=== PATIENT | female | born 1965 | race Caucasian/White ===

== ENCOUNTER 2023-09-21 11:55 | Outpatient (CLI) | payer BC | END 2023-09-21 11:56 | disposition home or self-care (01) | LOC: LABBT 11:55 | PROVIDERS: ATTEND Thoracic Surgery (Cardiothoracic Vascular Surgery) | DX: Z01.818 Encounter for other preprocedural examination (principal); I25.10 Atherosclerotic heart disease of native coronary artery without angina pectoris | CPT/HCPCS: 71046; 93005; 93010 ==

== ENCOUNTER 2023-09-22 06:14 | Inpatient (IN) | payer BC ==
[2023-09-21 14:14] LABS: Hematocrit 37.5 % (34.9-44.5); Hemoglobin 13.3 g/dL (12.0-15.5); Mean Corpuscular HGB CONC 35.5 g/dL (32.0-36.0); Mean Corpuscular Hemoglobin 30.2 pg (27.0-33.0); Mean Corpuscular Volume 85.2 fl (81.6-98.3); Mean Platelet Volume 12.1 fl (7.4-10.4); Platelet Count 265 10x3/uL (150-450); RBC Distribution Width 14.2 % (11.5-14.5)
[2023-09-21 14:21] LABS: Anion Gap 15 mmol/L (10-20); BUN (Urea Nitrogen) 17 mg/dL (9.8-20.1); Calc. Creatinine Clearance 0 mL/min (70-130); Calcium 9.1 mg/dL (7.8-10.44); Carbon Dioxide 26 mmol/L (22-29); Chloride 102 mmol/L (98-107); Estimated GFR 83; Glucose 284 mg/dL (70-105); Potassium 4.4 mmol/L (3.5-5.1); Sodium 139 mmol/L (136-145)
[2023-09-22] MEDS ORDERED: Fentanyl 250 MCG/5 ML VIAL ONE ×2 (06:16→08:08)
[2023-09-22] MEDS ORDERED: Midazolam HCl 2 mg/2 ml Vial ONE ×4 (06:17→10:46)
[2023-09-22] MEDS ORDERED: Bupivacaine PF 0.5% 30 ML VIAL ONE (06:36)
[2023-09-22] MEDS ORDERED: PHENYLEPHRINE-NS 100 MCG/ML 10 ML SYRINGE ONE ×3 (06:36→11:18)
[2023-09-22] MEDS ORDERED: Dexamethasone 4 mg/ml Vial ONE (06:36)
[2023-09-22] MEDS ORDERED: Albumin 5% 500 ML ONE (06:36)
[2023-09-22] MEDS ORDERED: EPINEPHrine 1 MG/ML VIAL ONE (06:36)
[2023-09-22] MEDS ORDERED: Heparin 10,000 UNITS/1 ML VIAL 30,000 UNITS in Sodium Chloride 0.9% 1,000 ML FS SCH (06:45)
[2023-09-22] MEDS ORDERED: CEFAZOLIN 2 GM VIAL ONE (06:47)
[2023-09-22] MEDS ORDERED: Lidocaine 1% MPF 2 ML VIAL ONE (06:47)
[2023-09-22] MEDS ORDERED: Protamine Sulfate 250 MG/25 ML VIAL ONE (07:42)
[2023-09-22] MEDS ORDERED: Magnesium 5 GM/10 ML VIAL ONE (07:42)
[2023-09-22] MEDS ORDERED: Mannitol 12.5 GM/50 ML ONE (07:42)
[2023-09-22] MEDS ORDERED: Vancomycin 1 GM VIAL ONE (07:42)
[2023-09-22] MEDS ORDERED: Cardioplegic Soln 1,000 ML BAG ONE (07:42)
[2023-09-22] MEDS ORDERED: Potassium Chloride 60 mEq (30 mL) VIAL ONE (07:42)
[2023-09-22] MEDS ORDERED: Lidocaine 2% PF 100 mg/5 ml Syringe ONE (07:42)
[2023-09-22] MEDS ORDERED: Heparin 5,000 UNITS/ML VIAL ONE (07:42)
[2023-09-22] MEDS ORDERED: DOPamine 400 MG/10 ML VIAL ONE (07:42)
[2023-09-22] MEDS ORDERED: Albumin 25% 25 GM (100 mL) BOT ONE (07:42)
[2023-09-22] MEDS ORDERED: Papaverine 60 MG/2 ML VIAL ONE (07:42)
[2023-09-22] MEDS ORDERED: Sodium Bicarb 50 mEq/50 ML VIAL ONE (07:42)
[2023-09-22] MEDS ORDERED: Heparin 30,000 units/30 ml VIAL ONE (07:42)
[2023-09-22] MEDS ORDERED: Calcium Chloride 1 GM/10 ML Abboject SYRINGE ONE (07:42)
[2023-09-22] MEDS ORDERED: Thrombin 5000 UNITS/5 ML VIAL ONE (07:42)
[2023-09-22] MEDS ORDERED: Aminocaproic Acid 5 GM/20 ML VIAL ONE (07:42)
[2023-09-22] MEDS ORDERED: Vecuronium 10 MG VIAL ONE ×2 (08:11→08:25)
[2023-09-22] MEDS ORDERED: Milrinone 10 MG/10 ML VIAL ONE (08:22)
[2023-09-22] MEDS ORDERED: Etomidate 40 MG (20 mL) VIAL ONE (08:25)
[2023-09-22] MEDS ORDERED: Rocuronium Bromide 10 MG/ML (10ML VIAL) ONE (08:54)
[2023-09-22] MEDS ORDERED: Esmolol 100 MG/10 ML VIAL ONE (09:16)
[2023-09-22] MEDS ORDERED: Insulin Regular 300 UNITS/3 ML VIAL ONE (09:24)
[2023-09-22] MEDS ORDERED: Lidocaine 1% PF 5 ML VIAL ONE (09:51)
[2023-09-22] MEDS ORDERED: Sterile Water 20 ML ONE (10:47)
[2023-09-22] MEDS ORDERED: Bisacodyl 5 MG TAB PO PRN (11:03)
[2023-09-22] MEDS ORDERED: Bisacodyl 10 MG SUPP PR PRN (11:03)
[2023-09-22] MEDS ORDERED: Albumin 5% 12.5 GM (250 mL) BOT IVPB PRN (11:03)
[2023-09-22] MEDS ORDERED: Hetastarch 6% 500 ML 500 ML IVPB PRN (11:03)
[2023-09-22] MEDS ORDERED: Nitroglycerin 50 MG/250 ML BOT 250 ML IVPB PRN (11:03)
[2023-09-22] MEDS ORDERED: Morphine 2 MG/ML VIAL SLOW IVP PRN (11:03)
[2023-09-22] MEDS ORDERED: Ipratropium/Albuterol 3 ML NEB NEB PRN (11:03)
[2023-09-22] MEDS ORDERED: DOPamine 400 MG/D5W 250 ML 250 ML IVPB PRN (11:03)
[2023-09-22] MEDS ORDERED: Mag-Al 1200 mg/1200 mg/30 ML UDCUP PO PRN (11:03)
[2023-09-22] MEDS ORDERED: Post-Op Insulin Drip Protocol IVPB ONE (11:03)
[2023-09-22] MEDS ORDERED: Guaifenesin DM 100-10/5 ML UDCUP PO PRN (11:03)
[2023-09-22] MEDS ORDERED: hydrALAZINE 20 MG/ML VIAL SLOW IVP PRN (11:03)
[2023-09-22] MEDS ORDERED: NOREPINEPHRINE 8 MG/250 ML-D5W 250 ML IVPB PRN (11:03)
[2023-09-22] MEDS ORDERED: Insulin Regular 300 UNITS/3 ML VIAL SC PRN (11:30)
[2023-09-22] MEDS ORDERED: Dextrose 50% Abboject 50 ML SYRINGE SLOW IVP PRN (11:30)
[2023-09-22] MEDS ORDERED: Glucagon 1 MG/ML KIT SC PRN (11:30)
[2023-09-22] MEDS ORDERED: Dextrose 5% in Water 1,000 ML IV PRN (11:30)
[2023-09-22 11:34] LABS: Actual Bicarbonate (HCO3a) 20.9 mEq/L (22-28); Base Excess (BEa) -4.7 mEq/L (-2.0 to +3.0); CO2 Tension 40.7 mmHg (35.0-45.0); Calcium, Ionized (arterial) 1.17 mmol/L (1.12-1.30); Carboxyhemoglobin (COHb) 0.3 gm% (0.0-3.0); Hematocrit-ABG 31 % (36.0-47.0); Hemoglobin (Hb) 10.4 g/dL (12.0-16.0); O2 Tension (PaO2), arterial 234.8 mmHg (80.0-100.0); pH, Arterial 7.329 (7.35-7.45)
[2023-09-22 11:35] LABS: ALV-art Gradient 142.125 mmHg (0-20); Puncture Site Arterial Line
[2023-09-22 11:38] LABS: #Basophils 0.1 thou/uL (0.0-0.2); #Eosinphils 0.1 thou/uL (0.0-0.7); #Monocytes 0.7 thou/uL (0.11-0.59); #Neutrophils 14.3 thou/uL (1.40-6.50); %Basophils 0.4 % (0.0-1.0); %Eosinophils 0.8 % (0.0-10.0); %Lymphocytes 15.5 % (21.0-51.0); %Monocytes 3.8 % (0.0-10.0); %Neutrophils 78.2 % (42.0-75.0); Hematocrit 28.4 % (36.0-47.0); Hemoglobin 9.6 g/dL (12.0-16.0); Mean Corpuscular HGB CONC 33.8 g/dL (32.0-36.0); Mean Corpuscular Hemoglobin 29.8 pg (27.0-31.0); Mean Corpuscular Volume 88.2 fl (78.0-98.0); Mean Platelet Volume 10.9 fL (7.4-10.4); Platelet Count 195 10x3/uL (130-400); Red Blood Cell (RBC) Count 3.22 mill/uL (4.20-5.40); White Blood Cell (WBC) Count 18.3 10x3/uL (4.8-10.8)
[2023-09-22 11:51] LABS: Anion Gap 8 mmol/L (10-20); BUN (Urea Nitrogen) 15 mg/dL (9.8-20.1); Calc. Creatinine Clearance 147 mL/min (70-130); Calcium 8.4 mg/dL (7.8-10.44); Carbon Dioxide 24 mmol/L (22-29); Chloride 109 mmol/L (98-107); Estimated GFR 103; Glucose 230 mg/dL (70-105); Potassium 3.3 mmol/L (3.5-5.1); Sodium 138 mmol/L (136-145)
[2023-09-22 11:52] LABS: INR-International Normal Ratio 1.2; PTT 29.3 sec (22.9-36.1); Prothrombin Time 15.6 sec (12.0-14.7)
[2023-09-22] MEDS: D5 1/2 NS w/20 mEq KCL 1,000 ML IV SCH (12:12)
[2023-09-22] MEDS: Magnesium 2 GM/50 ML(in water) 2 GM in Premix 1 BAG IVPB SCH (12:13)
[2023-09-22] MEDS: Ketorolac Tromethamine 30 MG (1 mL) VIAL IVP SCH (12:13)
[2023-09-22] MEDS: Ondansetron PF 4 MG/2 ML Vial IVP PRN (12:13)
[2023-09-22] MEDS: Potassium Chloride 20 MEQ (100 mL) BAG IVPB PRN (12:13)
[2023-09-22] MEDS: HUMULIN R 100 UNITS in Sodium Chloride 0.9% 100 ML IVPB SCH (12:14)
[2023-09-22 12:21] VITALS: BMI 34.8
[2023-09-22] MEDS: CEFAZOLIN 2 GM in Sodium Chloride 0.9% 100 ML IVPB SCH (14:08)
[2023-09-22 15:02] LABS: Actual Bicarbonate (HCO3a) 21.3 mEq/L (22-28); Base Excess (BEa) -0.7 mEq/L (-2.0 to +3.0); CO2 Tension 26.7 mmHg (35.0-45.0); Calcium, Ionized (arterial) 1.13 mmol/L (1.12-1.30); Hematocrit-ABG 31 % (36.0-47.0); Hemoglobin (Hb) 10.7 g/dL (12.0-16.0); O2 Tension (PaO2), arterial 162.1 mmHg (80.0-100.0); Potassium - ABG Lab 3.87 mmol/L (3.70-5.30); pH, Arterial 7.519 (7.35-7.45)
[2023-09-22 15:03] LABS: ALV-art Gradient 89.725 mmHg (0-20); Puncture Site Arterial Line
[2023-09-22] MEDS: fentaNYL 50 mcg/mL 1 mL Vial SLOW IVP PRN (15:47)
[2023-09-22 16:52] LABS: Hemoglobin 10.2 g/dL (12.0-16.0)
[2023-09-22 17:18] LABS: Potassium 3.8 mmol/L (3.5-5.1)
[2023-09-22] MEDS: Famotidine/PF 20 mg/2ml Vial SLOW IVP SCH (20:29)
[2023-09-22] MEDS: Rosuvastatin 20 MG TAB PO SCH (20:29)
[2023-09-22] MEDS: traMADol HCl 50 MG TAB PO PRN (21:31)
[2023-09-23] MEDS: Albumin 5% 12.5 GM (250 mL) BOT IVPB PRN (01:13)
[2023-09-23 01:53] LABS: Potassium 4.5 mmol/L (3.5-5.1)
[2023-09-23] MEDS: fentaNYL 50 mcg/mL 1 mL Vial SLOW IVP PRN (03:47)
[2023-09-23 05:05] LABS: #Monocytes 1.3 thou/uL (0.11-0.59); #Neutrophils 11.9 thou/uL (1.40-6.50); %Basophils 0.1 % (0.0-1.0); %Monocytes 8.8 % (0.0-10.0); %Neutrophils 80.5 % (42.0-75.0); Hematocrit 26.3 % (36.0-47.0); Hemoglobin 8.9 g/dL (12.0-16.0); Mean Corpuscular HGB CONC 33.8 g/dL (32.0-36.0); Mean Corpuscular Hemoglobin 29.9 pg (27.0-31.0); Mean Corpuscular Volume 88.3 fl (78.0-98.0); Mean Platelet Volume 12.1 fL (7.4-10.4); Platelet Count 158 10x3/uL (130-400); RBC Distribution Width 14.8 % (11.5-14.5); Red Blood Cell (RBC) Count 2.98 mill/uL (4.20-5.40); White Blood Cell (WBC) Count 14.8 10x3/uL (4.8-10.8)
[2023-09-23 05:30] LABS: Anion Gap 13 mmol/L (10-20); BUN (Urea Nitrogen) 17 mg/dL (9.8-20.1); Calc. Creatinine Clearance 165 mL/min (70-130); Calcium 8.3 mg/dL (7.8-10.44); Carbon Dioxide 19 mmol/L (22-29); Chloride 108 mmol/L (98-107); Estimated GFR 103; Glucose 117 mg/dL (70-105); Potassium 4.6 mmol/L (3.5-5.1); Sodium 135 mmol/L (136-145)
[2023-09-23] MEDS: Magnesium 2 GM/50 ML(in water) 2 GM in Premix 1 BAG IVPB SCH (07:38)
[2023-09-23] MEDS: Aspirin 325 MG TAB PO SCH (07:39)
[2023-09-23] MEDS: Potassium Chloride 10 MEQ TAB PO SCH (07:40)
[2023-09-23] MEDS: Furosemide 40 MG TAB PO SCH (07:40)
[2023-09-23] MEDS ORDERED: Insulin Glargine 30 UNITS/0.3 ML VIAL SC PRN (11:18)
[2023-09-23] MEDS ORDERED: Guaifenesin DM 100-10/5 ML UDCUP PO PRN (15:59)
[2023-09-23] MEDS ORDERED: Bisacodyl 5 MG TAB PO PRN (15:59)
[2023-09-23] MEDS ORDERED: Artificial Tear Sol 15 ML BOT EA EYE PRN (15:59)
[2023-09-23] MEDS ORDERED: Mag-Al 1200 mg/1200 mg/30 ML UDCUP PO PRN (15:59)
[2023-09-23] MEDS ORDERED: Milk Of Magnesia 30 ML UDCUP PO PRN (15:59)
[2023-09-23] MEDS ORDERED: Mineral Oil ENEMA PR PRN (15:59)
[2023-09-23] MEDS ORDERED: diphenhydrAMINE 25 MG CAP PO PRN (15:59)
[2023-09-23] MEDS ORDERED: Bisacodyl 10 MG SUPP PR PRN (15:59)
[2023-09-23] MEDS ORDERED: Zolpidem Tartrate 5 MG TAB PO PRN (15:59)
[2023-09-23] MEDS ORDERED: Nitroglycerin 0.4 MG TAB (25 Tab Bottle) SL PRN (15:59)
[2023-09-24] MEDS: Acetaminophen 325 MG TAB PO PRN (00:29)
[2023-09-24] MEDS ORDERED: Dextrose 50% Abboject 50 ML SYRINGE IVP PRN (01:00)
[2023-09-24] MEDS ORDERED: Glucagon 1 MG/ML KIT IM PRN (01:00)
[2023-09-24] MEDS ORDERED: Dextrose 5% in Water 1,000 ML IV PRN (01:00)
[2023-09-24] MEDS: Insulin Regular 300 UNITS/3 ML VIAL SC PRN (01:21)
[2023-09-24] MEDS: Aspirin 325 mg Enteric Coated Tablet PO SCH (09:22)
[2023-09-24] MEDS: traMADol HCl 50 MG TAB PO PRN (15:28)
[2023-09-25] MEDS: Amiodarone 150 MG, Admixture Fee 1 EACH in Dextrose 5% in Water 100 ML IVPB SCH (09:59)
[2023-09-25] MEDS: Amiodarone 450 MG, Admixture Fee 1 EACH in Dextrose 5% in Water 250 ML IVPB SCH (10:04)
[2023-09-25] MEDS: Furosemide 40 MG TAB PO SCH (14:13)
[2023-09-25] MEDS: Potassium Chloride 10 MEQ TAB PO SCH (16:23)
[2023-09-25] MEDS: Amiodarone 200 MG TAB PO SCH (20:04)
[2023-09-26] MEDS: Carvedilol 6.25 MG TAB PO SCH (09:03)
[2023-09-26] MEDS ORDERED: Amiodarone 450 MG in Dextrose 5% in Water 250 ML IVPB SCH (10:15)
[2023-09-26] MEDS: Amiodarone 450 MG, Admixture Fee 1 EACH in Dextrose 5% in Water 250 ML IVPB SCH (10:19)
[2023-09-26] MEDS: Amiodarone 450 MG in Dextrose 5% in Water 250 ML IVPB SCH (18:02)
[2023-09-27] MEDS: Amiodarone 200 MG TAB PO SCH (08:32)
[2023-09-27 09:45] LABS: #Eosinphils 0.1 thou/uL (0.0-0.7); #Monocytes 0.8 thou/uL (0.11-0.59); #Neutrophils 7.2 thou/uL (1.40-6.50); %Basophils 0.3 % (0.0-1.0); %Eosinophils 0.5 % (0.0-10.0); %Lymphocytes 20.5 % (21.0-51.0); %Monocytes 7.5 % (0.0-10.0); %Neutrophils 69.8 % (42.0-75.0); Hematocrit 25.8 % (36.0-47.0); Hemoglobin 8.7 g/dL (12.0-16.0); Mean Corpuscular HGB CONC 33.7 g/dL (32.0-36.0); Mean Corpuscular Hemoglobin 29.9 pg (27.0-31.0); Mean Corpuscular Volume 88.7 fl (78.0-98.0); Mean Platelet Volume 11.1 fL (7.4-10.4); Platelet Count 272 10x3/uL (130-400); RBC Distribution Width 14.9 % (11.5-14.5); Red Blood Cell (RBC) Count 2.91 mill/uL (4.20-5.40); White Blood Cell (WBC) Count 10.4 10x3/uL (4.8-10.8)
[2023-09-28 11:20] VITALS: TEMP 97.5
[2023-09-28 12:05] VITALS: BP 129/62
== END 2023-09-28 14:50 | disposition home or self-care (01) | DRG 236 ==
LOC: SDC 06:14 → CCU 08:44 → 2NO 09-23 19:20
PROVIDERS: ADMIT Thoracic Surgery (Cardiothoracic Vascular Surgery); ATTEND Thoracic Surgery (Cardiothoracic Vascular Surgery)
PROC: 02100Z9 Bypass Coronary Artery, One Artery from Left Internal Mammary, Open Approach (ICD-10-PCS; principal; 2023-09-22)
PROC: 021109W Bypass Coronary Artery, Two Arteries from Aorta with Autologous Venous Tissue, Open Approach (ICD-10-PCS; 2023-09-22)
PROC: 06BQ0ZZ Excision of Left Saphenous Vein, Open Approach (ICD-10-PCS; 2023-09-22)
PROC: 02L70CK Occlusion of Left Atrial Appendage with Extraluminal Device, Open Approach (ICD-10-PCS; 2023-09-22)
PROC: 5A1221Z Performance of Cardiac Output, Continuous (ICD-10-PCS; 2023-09-22)
PROC: 4A133R1 Monitoring of Arterial Saturation, Peripheral, Percutaneous Approach (ICD-10-PCS; 2023-09-22)
PROC: 30233J1 Transfusion of Nonautologous Serum Albumin into Peripheral Vein, Percutaneous Approach (ICD-10-PCS; 2023-09-22)
DX: I25.10 Atherosclerotic heart disease of native coronary artery without angina pectoris (principal); I50.22 Chronic systolic (congestive) heart failure; E11.9 Type 2 diabetes mellitus without complications; J45.909 Unspecified asthma, uncomplicated; I11.0 Hypertensive heart disease with heart failure; E78.5 Hyperlipidemia, unspecified; E66.9 Obesity, unspecified; I48.0 Paroxysmal atrial fibrillation; Z98.890 Other specified postprocedural states; Z90.49 Acquired absence of other specified parts of digestive tract; Z68.34 Body mass index [BMI] 34.0-34.9, adult
CPT/HCPCS: 36415; 36416; 71045; 80048; 82805; 85025; 85027; 85610; 85730; 86850; 86900; 86901; 93005; 93010; 93798; 94002; 94150; 97139; A4311; C1751; J0171; J0282; J0665; J1100; J1265; J1642; J1643; J1644; J1815; J1885; J2001; J2150; J2250; J2260; J2405; J2440; J2720; J3010; J3370; J3475; J3480; J3490; J7050; J7070; P9045; P9047; S0017; S0028